=== PATIENT | female | born 1960 | race Caucasian/White ===

== ENCOUNTER 2018-01-02 14:06 | Emergency (ER) | payer MEDICAID ==
[2018-01-02 14:45] VITALS: BP 112/67
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
== END 2018-01-02 17:13 | disposition home or self-care (01) ==
LOC: JP.ED 14:06
DX: F10.129 Alcohol abuse with intoxication, unspecified (principal); R53.1 Weakness; F17.210 Nicotine dependence, cigarettes, uncomplicated; E78.00 Pure hypercholesterolemia, unspecified; I10 Essential (primary) hypertension; E03.9 Hypothyroidism, unspecified; F32.9 Major depressive disorder, single episode, unspecified; F43.10 Post-traumatic stress disorder, unspecified; F41.0 Panic disorder [episodic paroxysmal anxiety]; Y90.8 Blood alcohol level of 240 mg/100 ml or more; Z79.899 Other long term (current) drug therapy
CPT/HCPCS: 36415; 80053; 82150; 83690; 84443; 85025; 99284; G0480

== ENCOUNTER 2018-05-15 16:01 | Emergency (ER) | payer MEDICAID ==
[2018-05-15 16:23] VITALS: BP 172/80
== END 2018-05-15 17:00 | disposition left against medical advice (07) ==
LOC: JP.ED 16:01
DX: Z53.21 Procedure and treatment not carried out due to patient leaving prior to being seen by health care provider (principal)